=== PATIENT | female | born 1990 | race Two or more races ===

== ENCOUNTER 2022-08-17 10:31 | Outpatient (CLI) | payer OTHER | END 2022-08-17 10:38 | disposition home or self-care (01) | LOC: RX STUDY 10:31 | DX: N97.1 Female infertility of tubal origin (principal) ==

== ENCOUNTER 2022-10-08 09:58 | Outpatient (CLI) | payer OTHER | END 2022-10-08 10:01 | disposition home or self-care (01) | LOC: SONOGRAMA 09:58 | DX: N97.1 Female infertility of tubal origin (principal); N84.0 Polyp of corpus uteri ==